=== PATIENT | female | born 1990 | race Hispanic/Latino ===

== ENCOUNTER 2023-10-09 08:27 | Emergency (ER) | payer OTHER, SELFPAY ==
[2023-10-09] MEDS ORDERED: KETOROLAC 30 MG/ML INJ ONE (09:10)
[2023-10-09] MEDS ORDERED: CYCLOBENZAPRINE 10 MG TAB ONE (09:10)
[2023-10-09 10:58] LABS: Sqamous Epithelial <5 /HPF (None Seen); Urine Bacteria <20 /HPF (<20); Urine Bilirubin NEGATIVE (Negative); Urine Blood Negative (Negative); Urine Clarity Extremely Turbid (Clear); Urine Color Yellow (Yellow); Urine Culture Reflex Order NOT NEEDED; Urine Glucose NEGATIVE (Negative); Urine Ketones NEGATIVE (Negative); Urine Microscopic Reflex YN ORDER UMIC; Urine Mucus 2+ /HPF (None Seen); Urine Nitrite NEGATIVE (Negative); Urine Protein TRACE (Negative); Urine Urobilinogen Normal (Normal); Urine WBC <5 /HPF (<5)
--- NOTE | 2023-10-09 11:22 | RAD REPORT ---
EXAM DESCRIPTION: CT - Thoracic Spine W/o Cont - 10/09/2023 11:12 am CLINICAL HISTORY: Radiculopathy. back pain COMPARISON: No comparisons TECHNIQUE: Axial CT imaging through the thoracic spine was performed with coronal and sagittal re-fo rmatted images. All CT scans are performed using dose optimization technique as appropriate and may include automated exposure control or mA/KV adjustment according to patient size. FINDINGS: Vertebral body heights and disc spaces are maintained. A compression fracture is not prese nt. No significant disc space narrowing. Thoracic spine alignment is within normal limits. No paraspinal masses or hematoma. Cholelithiasis is noted. IMPRESSION: No acute thoracic spine abnormality is detected. Cholelithiasis.
--- NOTE | 2023-10-09 11:24 | RAD REPORT ---
EXAM DESCRIPTION: CT - Spine Lumbar Wo Con - 10/09/2023 11:13 am CLINICAL HISTORY: Radiculopathy. PAIN COMPARISON: No comparisons TECHNIQUE: Axial noncontrast CT imaging of the lumbar spine was performed with coronal and sagittal re-formatted images. All CT scans are performed using dose optimization technique as appropriate and may include automated exposure control or mA/KV adjustment according to patient size. FINDINGS: No acute lumbar spine fracture seen. No aggressive marrow pattern or malalignment. Paraspinal tissues are normal in thickness. No paraspinal abscess or hematoma seen. Mild lower lumbar posterior disc bulges noted. Fibroid uterus is possible. IMPRESSION: No acute lumbar spine abnormality seen. Mild lower lumbar spondylosis.
--- NOTE | 2023-10-09 11:49 | EDPHYS ---
Physician Documentation [facility] Name: Reina Landers Age: 32 yrs Sex: Female : 1990 Arrival Date: 10/09/2023 Time: 08:27 Bed 8 Private MD: ED Physician Kolby Vega HPI: 10/08 09:31 This 32 yrs old Female presents to ER via EMS with complaints of Back Pain. rn 09:31 The patient presents with pain that is acute. The symptoms are located in the low back, rn thoracic area and lumbar area. Onset: The symptoms/episode began/occurred yesterday. The pain does not radiate. Modifying factors: The patient symptoms are alleviated by remaining still, the patient symptoms are aggravated by any movement, bending, lifting. Severity of symptoms: At their worst the symptoms were moderate, in the emergency department the symptoms are unchanged. The patient has experienced similar episodes in the past. 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 Had a little bit of back pain yesterday after lifting but pain worse today with range of motion and stiffness noted. No bowel or bladder issues. No weakness of lower extremities. Given fentanyl by EMS and feels better.. 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 - Infectious Disease History:: Denies. - Social history:: Smoking status: Patient denies any tobacco usage or history of. - Family history:: not pertinent. - Hospitalizations: : No recent hospitalization is reported. ROS: 09:31 Constitutional: Negative for fever, chills, and weight loss, Cardiovascular: Negative rn for chest pain, palpitations, and edema, Respiratory: Negative for shortness of breath, cough, wheezing, and pleuritic chest pain, Abdomen/GI: Negative for abdominal pain, nausea, vomiting, diarrhea, and constipation, Back: Positive for mid back pain : Negative for injury, bleeding, discharge, and swelling, MS/Extremity: Negative for injury and deformity, Skin: Negative for injury, rash, and discoloration, Neuro: Negative for headache, weakness, numbness, tingling, and seizure, Exam: 09:31 Constitutional: This is a well developed, well nourished patient who is awake, alert, rn and in no acute distress. Neck: Trachea midline, no vertebral point tenderness. No Meningismus. Cardiovascular: Regular rate and rhythm. No pulse deficits. Respiratory: No increased work of breathing, no retractions or nasal flaring. Abdomen/GI: Soft, nontender Back: Perispinal thoracic and lumbar tenderness. No ecchymosis. MS/ Extremity: Pulses equal, no cyanosis. Neurovascular intact. Full, normal range of motion. Equal circumference. Neuro: Awake and alert, GCS 15, oriented to person, place, time, and situation. Cranial nerves II-XII grossly intact. Motor strength 5/5 in all extremities. Sensory grossly intact. Vital Signs: 08:48 BP 140 / 93; Pulse 89; Resp 18; Temp 98.4; Pulse Ox 100% on R/A; Pain 10/10; cm10 09:10 BP 111 / 67; Pulse 72; Resp 16; Pulse Ox 100% on R/A; Pain 8/10; nj1 10:00 BP 113 / 72; Pulse 65; Resp 16; Pulse Ox 100% ; Pain 7/10; nj1 10:00 Pain 7/10; nj1 11:26 BP 109 / 66; Pulse 64; Pulse Ox 100% on R/A; nj1 08:48 Pain Scale: Adult cm10 09:10 Pain Scale: Adult nj1 10:00 Pain Scale: Adult nj1 10:00 Pain Scale: Adult nj1 MDM: 08:40 Patient medically screened. rn 11:42 Differential diagnosis: Osteoarthritis ruptured disc, sprain, vertebral fracture. Data rn reviewed: vital signs, nurses notes, radiologic studies, CT scan, and as a result, I will discharge patient. Counseling: I had a detailed discussion with the patient and/or guardian regarding the historical points, exam findings, and any diagnostic results supporting the discharge/admit diagnosis, radiology results, the need for outpatient follow up, to return to the emergency department if symptoms worsen or persist or if there are any questions or concerns that arise at home. Special discussion: I discussed with the patient/guardian in detail that at this point there is no indication for admission to the hospital. It is understood, however, that if the symptoms persist or worsen the patient needs to return immediately for re-evaluation. Based on the history and exam findings, there is no indication for further emergent testing or inpatient evaluation. I discussed with the patient/guardian the need to see the back specialist for further evaluation of the symptoms. 11:49 ED course: I have personally reviewed all of the results, including but not limited to rn blood tests and imaging deemed necessary to safely discharge this patient at this time. All results given to and printed out for patient. I personally went over all the results with the patient and answered all questions. Also went over incidental findings of cholelithiasis and uterine fibroids. Patient will follow-up with PCP and or specialist as discussed. Return precautions given and understood.. 10/08 09:21 Order name: Urinalysis w/ reflexes; Complete Time: 11:20 rn 10/08 09:21 Order name: Test, Urine; Complete Time: 11:20 rn 10/08 08:56 Order name: CT Thoracic Spine Wo Cont; Complete Time: 11:31 rn 10/08 08:56 Order name: CT Lumbar Spine Wo Con; Complete Time: 11:31 rn Administered Medications: 09:05 CANCELLED (Other Intervention Used): [id number] mg IM once cm10 09:13 Drug: Cyclobenzaprine PO 10 mg PO once Route: PO; nj1 10:00 Follow up: Response: No adverse reaction nj1 09:15 Drug: Ketorolac IVP 15 mg IVP once Route: IVP; Site: left antecubital; nj1 10:00 Follow up: Pain 7/10 Adult; Response: No adverse reaction; Pain is decreased nj1 Disposition Summary: 10/09/23 11:49 Discharge Ordered Notes: Location: Home rn Problem: new rn Symptoms: have improved rn Condition: Stable rn Diagnosis - Strain of muscle and tendon of back wall of thorax rn - Strain of muscle, fascia and tendon of lower back rn Followup: rn - With: Private Physician - When: As needed - Reason: Recheck today's complaints, Re-evaluation by your physician Discharge Instructions: - Discharge Summary Sheet rn - Acute Back Pain, Adult rn - Back Exercises rn Forms: - Medication Reconciliation Form rn - Thank You Letter rn - 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 chago cm10
--- NOTE | 2023-10-09 11:49 | ER ---
Nurse's Notes [facility] Name: Reina Landers Age: 32 yrs Sex: Female : 1990 Arrival Date: 10/09/2023 Time: 08:27 Bed 8 Private MD: Diagnosis: Strain of muscle and tendon of back wall of thorax;Strain of muscle, fascia and tendon of lower back Presentation: 10/08 08:48 Chief complaint: EMS states: Called to patient's home due to patient having back pain. 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 Pt reports having pain to her lower back. No numbness or tingling. Coronavirus screen: Client denies travel out of the [place] in the last 14 days. At this time, the client does not indicate any symptoms associated with coronavirus-19. Ebola Screen: Patient denies travel to an Ebola-affected area in the 21 days before illness onset. No symptoms or risks identified at this time. Initial Sepsis Screen: Does the patient meet any 2 criteria? Yes Does the patient have a suspected source of infection? No. Patient's initial sepsis screen is negative. Risk Assessment: Do you want to hurt yourself or someone else? Patient reports no desire to harm self or others. Onset of symptoms was October 09, 2023. Care prior to arrival: Medication(s) given: zofran 4 mg, Fentanyl 100mcg IV initiated. 20 GA, in the left antecubital area. 08:48 Method Of Arrival: EMS: [facility] 08:48 Acuity: ROS 3 cm10 Triage Assessment: 08:50 General: Appears in no apparent distress. uncomfortable, Behavior is calm, cooperative. cm10 Pain: Complains of pain in back Pain currently is 10 out of 10 on a pain scale. Neuro: No deficits noted. Level of Consciousness is awake, alert, obeys commands, Oriented to person, place. Respiratory: No deficits noted. Airway is patent Respiratory effort is even, unlabored, Respiratory pattern is regular, symmetrical. Musculoskeletal: Range of motion: intact in all extremities, Reports pain in back. 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 - Infectious Disease History:: Denies. - Social history:: Smoking status: Patient denies any tobacco usage or history of. - Family history:: not pertinent. - Hospitalizations: : No recent hospitalization is reported. Screenin:18 [facility] ED Fall Risk Assessment (Adult) History of falling in the last 3 months, nj1 including since admission No falls in past 3 months (0 pts) Confusion or Disorientation No (0 pts) Intoxicated or Sedated No (0 pts) Impaired Gait Yes (1 pt) Mobility Assist Device Used No (0 pt) Altered Elimination No (0 pt) Score/Fall Risk Level 0 - 2 = Low Risk Oriented to surroundings, Maintained a safe environment, Hourly rounding (assess needs \T\ fall precautionary measures) done. Abuse screen: Denies threats or abuse. Denies injuries from another. Nutritional screening: No deficits noted. Tuberculosis screening: No symptoms or risk factors identified. Assessment: 09:10 General: Appears in no apparent distress. uncomfortable, Behavior is calm, cooperative, nj1 appropriate for age. Pain: Complains of pain in back Pain currently is 8 out of 10 on a pain scale. Neuro: Level of Consciousness is awake, alert, obeys commands, Oriented to person, place, time, situation. 09:10 Cardiovascular: Patient's skin is warm and dry. Respiratory: Airway is patent nj1 Respiratory effort is even, unlabored. 10:00 Reassessment: Patient appears in no apparent distress at this time. Patient and/or nj1 family updated on plan of care and expected duration. Pain level reassessed. Patient is alert, oriented x 3, equal unlabored respirations, skin warm/dry/pink. 11:05 Reassessment: Not in room, in imaging. nj1 11:26 Reassessment: Patient appears in no apparent distress at this time. Pt resting/sleeping.nj1 Vital Signs: 08:48 BP 140 / 93; Pulse 89; Resp 18; Temp 98.4; Pulse Ox 100% on R/A; Pain 10/10; cm10 09:10 BP 111 / 67; Pulse 72; Resp 16; Pulse Ox 100% on R/A; Pain 8/10; nj1 10:00 BP 113 / 72; Pulse 65; Resp 16; Pulse Ox 100% ; Pain 7/10; nj1 10:00 Pain 7/10; nj1 11:26 BP 109 / 66; Pulse 64; Pulse Ox 100% on R/A; nj1 08:48 Pain Scale: Adult cm10 09:10 Pain Scale: Adult nj1 10:00 Pain Scale: Adult nj1 10:00 Pain Scale: Adult nj1 ED Course: 08:39 Patient arrived in ED. cm10 08:40 Kolby Vega MD is Attending Physician. rn 08:50 Triage completed. cm10 08:51 Arm band placed on Patient placed in an exam room, on a stretcher, on pulse oximetry. cm10 09:03 Cyndy Huntley RN is Primary Nurse. nj1 09:10 Patient has correct armband on for positive identification. Bed in low position. Call nj1 light in reach. Side rails up X 1. Adult w/ patient. Provided Education on: call light, fall precautions. 10:19 Radiology exam delayed due to test not completed at this time. ls3 11:07 CT Thoracic Spine Wo Cont In Process Unspecified. EDMS 11:08 CT Lumbar Spine Wo Con In Process Unspecified. EDMS 11:55 No provider procedures requiring assistance completed. IV discontinued, intact, kn bleeding controlled, No redness/swelling at site. Administered Medications: 09:05 CANCELLED (Other Intervention Used): [id number] mg IM once cm10 09:13 Drug: Cyclobenzaprine PO 10 mg PO once Route: PO; nj1 10:00 Follow up: Response: No adverse reaction nj1 09:15 Drug: Ketorolac IVP 15 mg IVP once Route: IVP; Site: left antecubital; nj1 10:00 Follow up: Pain 7/10 Adult; Response: No adverse reaction; Pain is decreased nj1 Medication: 11:55 VIS not applicable for this client. kn Outcome: 11:49 Discharge ordered by . rn 11:55 Discharged to home ambulatory, with family, kn 11:55 Condition: stable 11:55 Discharge instructions given to patient, 11:57 Patient left the ED. kn Signatures: Dispatcher [employer] EDMS Kolby Vega MD MD rn Siler, Lynzie ls3 Cyndy Huntley RN RN nj1 Maria Ines Abdul RN RN cm10 BROCK OWEN RN RN kn Corrections: (The following items were deleted from the chart) 11:04 10:00 BP 113 / 72; Pulse 65bpm; Resp 16bpm; Pulse Ox 100%; kn nj1
[2023-10-09 14:30] VITALS: BP 109/66; TEMP 98.4; O2SAT 100
== END 2023-10-09 11:57 | disposition home or self-care (01) ==
LOC: ER 08:27
DX: S39.012A Strain of muscle, fascia and tendon of lower back, initial encounter (principal); S29.012A Strain of muscle and tendon of back wall of thorax, initial encounter
CPT/HCPCS: 72128; 72131; 81001; 81025; 96374; 99284